=== PATIENT | female | born 1995 | race Caucasian/White ===

== ENCOUNTER 2017-09-05 23:22 | Inpatient (IN) | payer OTHER ==
[~2017-09-05] VITALS: Ht 152.4 cm; Wt 69.9 kg
[~2017-09-05 23:22] MED LIST: KEFSUS PO; PREN-385 PO
[2017-09-05 23:29] VITALS: BP 125/69
--- NOTE | 2017-09-05 23:49 | NUR ---
PT TAKEN TO BED 12
--- NOTE | 2017-09-05 23:50 | NUR ---
21/F BIB S/O C/O 10 EPIGATRIC PAIN RADIATING TO LLQ X 1 DAY. PT REPORTS VOMITING X 2 DAYS WITH DECREASED IN APPETITE, BRIGHT RED BLOOD IN STOOL X 2 EPISODES. PT REPORTS SHE IS UNABLE TO HOLD MEAL, LAST MEAL WAS 4 HOURS AGO AND SHE VOMITED. LLQ TENDER TO TOUCH, BS ACTIVE X 4 QUADRANTS. CSEC X 4 MONTHS AGO. DENIES DYSURIA. SKIN IS PINK/WARM/DRY; AAOX4 WITH EVEN AND STEADY GAIT; LUNGS CLEAR BL; HR EVEN AND REGULAR; PT DENIES ANY FEVER, CP, SOB, OR COUGH AT THIS TIME; VSS; PATIENT POSITIONED FOR COMFORT; HOB ELEVATED; BEDRAILS UP X2; BED DOWN. ER MD MADE AWARE OF PT STATUS.
[2017-09-06] VITALS (7 sets, daily range): BP systolic 103–113; BP diastolic 49–73
[2017-09-06] MEDS ORDERED: PANTOPRAZOLE 40 MG INJ VIAL IVP ONE (00:25)
[2017-09-06] MEDS ORDERED: MORPHINE SULFATE 4 MG/ML SYR IVP ONE (00:25)
--- NOTE | 2017-09-06 00:53 | NUR ---
PT TAKEN TO CT
[2017-09-06 01:03] LABS: APPEARANCE,URINE CLEAR (CLEAR); BILIRUBIN,URINE NEGATIVE (NEGATIVE); BLOOD, URINE NEGATIVE (NEGATIVE); COLOR,URINE YELLOW (YELLOW); LEUKOCYTE ESTERASE ,URINE NEGATIVE (NEGATIVE); NITRITE, URINE NEGATIVE (NEGATIVE); PH,URINE 7.5 (5.0-9.0); UGLUCOSE NEGATIVE (NEGATIVE)
--- NOTE | 2017-09-06 01:04 | NUR ---
PT RETURN FROM CT
[2017-09-06 01:07] LABS: HEMATOCRIT 38.8 % (36-48); HEMOGLOBIN 12.6 g/dL (12.0-16.0); MEAN CORPUSCULAR HEMOGLOBIN 26 pg (27-31); MEAN CORPUSCULAR HGB CONC 33 g/dL (33-37); MEAN CORPUSCULAR VOLUME 79 fL (80-94); PLATELET COUNT (AUTO) 271 K/uL (140-450); RED BLOOD CELL COUNT(AUTO) 4.93 MIL/uL (4.20-5.40); RED CELL DISTRIBUTION WIDTH 13.3 % (11.6-13.7); WHITE BLOOD COUNT (AUTO) 10.5 K/uL (4.5-11.0)
[2017-09-06 01:12] LABS: RBC,URINE 0-5 (RARE) /HPF (0-5); WBC,URINE 0-5 (RARE) /HPF (0-5)
[2017-09-06 01:17] LABS: ALBUMIN 3.6 g/dL (3.4-5.0); CARBON DIOXIDE 26.7 mmol/L (21-32); CREATININE 0.7 mg/dL (0.6-1.3); POTASSIUM 3.7 mmol/L (3.5-5.1); TOTAL BILIRUBIN 0.2 mg/dL (0.0-1.0)
[2017-09-06 01:19] LABS: EOSINOPHILS % (MANUAL) 3 % (0-4); LYMPHOCYTES % (MANUAL) 35 % (20-46); MONOCYTES % (MANUAL) 10 % (5-12)
[2017-09-06] MEDS ORDERED: NACL 0.9% 1,000 ML IV SCH (02:06)
[2017-09-06] MEDS ORDERED: MORPHINE SULFATE 2 MG/ML SYR IVP PRN (02:10)
[2017-09-06] MEDS ORDERED: ACETAMINOPHEN 325 MG TAB PO PRN (02:10)
[2017-09-06] MEDS ORDERED: ONDANSETRON 4 MG/2 ML VIAL IVP PRN (02:10)
--- NOTE | 2017-09-06 02:32 | NUR ---
Patient will be admitted to care of DR. GALE. Admited to [facility]. Will go to room 112 B. Belongings list completed. Report to [facility]. PT TRANSFERRED VIA GURNEY. IV ON LEFT WRIST SL AND PATENT. VSS, PT STABLE
--- NOTE | 2017-09-06 02:40 | NUR ---
ADMITTED THIS 21 YEAR OLD FEMALE FROM ER PER LASHELL WITH CC OF ABDOMINAL PAIN AND BLOOD IN STOOL, AMBULATORY WITH STEADY GAIT TO BED, ASSESSMENT DONE, VITAL SIGNS STABLE, DENIES PAIN AT THIS TIME, ORIENTED TO ROOM AND CALL LIGHT, INSTRUCTED CLEAR LIQUID DIET ONLY, VERBALIZED UNDERSTANDING, PLAN OF CARE DISCUSS, CALL LIGHT WITHIN REACH.
--- NOTE | 2017-09-06 03:20 | NUR ---
IVF OF NORMAL SALINE AT 100ML/H STARTED, APPLE JUICE PROVIDED, TOLERATED WELL, ALL NEEDS ATTENDED.
[2017-09-06] MEDS ORDERED: INFLUENZA VIRUS VACCINE QUAD 0.5 ML SYR IMVAC PRN (03:25)
[2017-09-06 05:50] LABS: BASOPHILS # (AUTO) 0.1 K/uL (0.00-0.22); BASOPHILS % (AUTO) 1.2 % (0.0-2.0); EOSINOPHILS # (AUTO) 0.2 K/uL (0-0.4); HEMATOCRIT 36.6 % (36-48); HEMOGLOBIN 11.8 g/dL (12.0-16.0); LYMPHOCYTES # (AUTO) 2.8 K/uL (2.5-16.5); LYMPHOCYTES % (AUTO) 31.9 % (20.5-51.1); MEAN CORPUSCULAR HEMOGLOBIN 25 pg (27-31); MEAN CORPUSCULAR HGB CONC 32 g/dL (33-37); MEAN CORPUSCULAR VOLUME 79 fL (80-94); MONOCYTES # (AUTO) 0.7 K/uL (0.8-1.0); NEUTROPHILS # (AUTO) 4.8 K/uL (1.8-7.7); NEUTROPHILS % (AUTO) 56.9 % (42.2-75.2); PLATELET COUNT (AUTO) 257 K/uL (140-450); RED BLOOD CELL COUNT(AUTO) 4.65 MIL/uL (4.20-5.40); RED CELL DISTRIBUTION WIDTH 13.3 % (11.6-13.7); WHITE BLOOD COUNT (AUTO) 8.6 K/uL (4.5-11.0)
--- NOTE | 2017-09-06 06:10 | NUR ---
SEEN PT SLEEPING, NO SIGNS DISTRESS, IVF INFUSING WELL, MONITORED CLOSELY.
--- NOTE | 2017-09-06 06:50 | NUR ---
PT AWAKE COMPLAINING OF PAIN, MEDICATED PRN FOR PAIN WITH MORPHINE IVP, MONITORED CLOSELY.
--- NOTE | 2017-09-06 07:15 | NUR ---
PT SLEEPING, NO SIGNS OF DISTRESS, REPORT GIVEN TO ARNEL SNYDER FOR CONTINUITY OF CARE.
--- NOTE | 2017-09-06 07:20 | NUR ---
Patient's Plan of Care was discussed and reviewed with CIGAR MAKING SUPERVISOR: LILLIAN CHOUDHURY. RECEIVE PT IN BED. AWAKE. ALERT ORIENTEDX4, NO SOB NOTED AT THIS TIME.DENIES ANY PAIN OR DISCOMFORT AT THIS TIME. PT AMBULATORY. SAFETY PRECAUTION IN PLACE. CALL LIGHT WITHIN REACH.
--- NOTE | 2017-09-06 08:30 | NUR ---
DR. GALE CAME, INFORMED OF DR. SPARROW ORDER OF EGD TODAY 09/06/17.
[2017-09-06] MEDS ORDERED: PANTOPRAZOLE 40 MG INJ VIAL IVP SCH (09:00)
[2017-09-06 09:10] LABS: PROTHROMBIN TIME 10.2 secs (10.8-13.4)
--- NOTE | 2017-09-06 09:13 | NUR ---
PATIENT HAS BEEN SCREENED AND CATEGORIZED MODERATE NUTRITION RISK. PATIENT WILL BE SEEN WITHIN 3-5 DAYS OF ADMISSION. 09/08/17-09/10/[address]
[2017-09-06] MEDS ORDERED: MIDAZOLAM 2 MG/2 ML VIAL ONE ×2 (11:14)
[2017-09-06] MEDS ORDERED: diphenhydrAMINE 50 MG/ML VIAL ONE (11:14)
[2017-09-06] MEDS ORDERED: fentaNYL 0.05 MG/ML VIAL ONE (11:14)
--- NOTE | 2017-09-06 11:20 | NUR ---
WENT TO OR VIA [facility] FOR EGD. AWAKE, ALERT, AND ORIENTED X4. NO C/O PAIN. NO SOB, NOTED. IN STABLE CONDITION.
[2017-09-06] MEDS ORDERED: fentaNYL 0.05 MG/ML VIAL IVP ONE (11:55)
[2017-09-06] MEDS ORDERED: MIDAZOLAM 2 MG/2 ML VIAL IVP ONE (11:55)
--- NOTE | 2017-09-06 12:06 | NUR ---
BACK FROM OR VIA GURNEY. NO SIGNS AND SYMPTOMS OF ACUTE DISTRESS NOTED. KEEP COMFORTABLE ON BED. CALL LIGHT WITHIN REACH.
[2017-09-06] MEDS ORDERED: SENNA 8.6 MG TAB PO SCH (13:00)
[2017-09-06] MEDS ORDERED: LACTULOSE 20 GM/30 ML UDC PO SCH (13:00)
--- NOTE | 2017-09-06 15:40 | NUR ---
DR. GALE CALLED BACK AND SPOKE TO CHARGE NURSE VERONICA SANCHEZ -ARNEL. PER. DR. GALE PT. OK TO D/C HOME TODAY 09/06/17 AND PT. DON'T NEED COLONOSCOPY.
[2017-09-06] MEDS ORDERED: ACET-2619 PO (16:00)
[2017-09-06] MEDS ORDERED: OMEP20TC12 PO (16:01)
--- NOTE | 2017-09-06 16:15 | NUR ---
EXPLAINED TO PT. AND PT. -PILAR ABOUT MD D/C ORDER, D/C INSTRUCTIONS AND TEACHING, MD D/C PRESCRIPTION LIST EDUCATION, PRIMARY CARE PHYSICIAN FOLLOW-UP THIS WEEK, DIAGNOSIS, DIET, PAIN MANAGEMENT TEACHING. VERBALIZED UNDERSTANDING.
--- NOTE | 2017-09-06 17:25 | NUR ---
D/C HOME VIA WHEELCHAIR WITH ASSISTANCE FROM HENRY RIVERA, ACCOMPANIED BY PT. -PILAR. AWAKE, ALERT, AND ORIENTED X4. SPEECH CLEAR. NO C/O PAIN. NO SOB, NOTED. IN STABLE CONDITION. INFORMED CHARGE NURSE VERONICA ABERNATHY.
[2017-09-06] MEDS ORDERED: MAGNESIUM CITRATE 300 ML BTL PO SCH (21:00)
== END 2017-09-06 17:25 | disposition home or self-care (01) | DRG 249 ==
LOC: MED 23:22 → MTU 09-06 02:10
PROVIDERS: ADMIT Hospitalist; ATTEND Hospitalist
PROC: 0DB68ZX Excision of Stomach, Via Natural or Artificial Opening Endoscopic, Diagnostic (ICD-10-PCS; principal; 2017-09-06 11:00)
DX: K52.9 Noninfective gastroenteritis and colitis, unspecified (principal); K64.9 Unspecified hemorrhoids; N83.202 Unspecified ovarian cyst, left side; N92.6 Irregular menstruation, unspecified
CPT/HCPCS: 36415; 80053; 81001; 82150; 83690; 84703; 85025; 85610; 86677; 87081; 90658; 96374; 96375; 99291; C9113; J1200; J2250; J2270; J3010; J7030

== ENCOUNTER 2017-11-28 12:57 | Emergency (ER) | payer OTHER ==
[~2017-11-28] VITALS: Ht 152.4 cm; Wt 68.0 kg
[~2017-11-28 12:57] MED LIST changes: +ACET-2619 PO; +OMEP20TC12 PO
[2017-11-28 13:31] VITALS: BP 122/58
--- NOTE | 2017-11-28 19:00 | NUR ---
PATIENT PRESENTS TO ED WITH C/O INTERMITTENT SHARP PAIN LLQ X 3 DAYS---DENIES DIARRHEA, VAG BLEED. PT DENIES N/V/D; SKIN IS PINK/WARM/DRY; AAOX4 WITH EVEN AND STEADY GAIT; LUNGS CLEAR BL; HR EVEN AND REGULAR; PT DENIES ANY FEVER, CP, SOB, OR COUGH AT THIS TIME; PATIENT STATES PAIN OF 5/10 AT THIS TIME; VSS; PATIENT POSITIONED FOR COMFORT; HOB ELEVATED; BEDRAILS UP X2; BED DOWN. ER MD MADE AWARE OF PT STATUS.
[2017-11-28 19:11] LABS: BASOPHILS # (AUTO) 0.2 K/uL (0.00-0.22); BASOPHILS % (AUTO) 2.1 % (0.0-2.0); EOSINOPHILS # (AUTO) 0.1 K/uL (0-0.4); EOSINOPHILS % (AUTO) 0.7 % (0.0-4.0); HEMATOCRIT 39.7 % (36-48); LYMPHOCYTES # (AUTO) 2.1 K/uL (2.5-16.5); LYMPHOCYTES % (AUTO) 20.1 % (20.5-51.1); MEAN CORPUSCULAR HEMOGLOBIN 26 pg (27-31); MEAN CORPUSCULAR HGB CONC 33 g/dL (33-37); MEAN CORPUSCULAR VOLUME 78 fL (80-94); MONOCYTES # (AUTO) 0.5 K/uL (0.8-1.0); MONOCYTES % (AUTO) 4.7 % (1.7-9.3); NEUTROPHILS # (AUTO) 7.4 K/uL (1.8-7.7); NEUTROPHILS % (AUTO) 72.4 % (42.2-75.2); PLATELET COUNT (AUTO) 271 K/uL (140-450); RED BLOOD CELL COUNT(AUTO) 5.06 MIL/uL (4.20-5.40); RED CELL DISTRIBUTION WIDTH 15.4 % (11.6-13.7); WHITE BLOOD COUNT (AUTO) 10.3 K/uL (4.8-10.8)
[2017-11-28 19:28] LABS: APPEARANCE,URINE CLEAR (CLEAR); BILIRUBIN,URINE NEGATIVE (NEGATIVE); BLOOD, URINE NEGATIVE (NEGATIVE); COLOR,URINE YELLOW (YELLOW); LEUKOCYTE ESTERASE ,URINE NEGATIVE (NEGATIVE); NITRITE, URINE NEGATIVE (NEGATIVE); UGLUCOSE NEGATIVE (NEGATIVE)
[2017-11-28 20:30] VITALS: BP 117/73
--- NOTE | 2017-11-28 20:30 | NUR ---
Patient discharged with v/s stable. Written and verbal after care instructions given and explained. Patient verbalized understanding. Ambulatory with steady gait. All questions addressed prior to discharge. Advised to follow up with PMD.
== END 2017-11-28 20:30 | disposition home or self-care (01) ==
LOC: MED 12:57
DX: O20.0 Threatened abortion (principal); Z3A.01 Less than 8 weeks gestation of pregnancy; Z79.899 Other long term (current) drug therapy
CPT/HCPCS: 36415; 76817; 81003; 81025; 84702; 85025; 86900; 86901; 99285; Q0092